=== PATIENT | female | born 1975 | race Caucasian/White ===

== ENCOUNTER 2016-11-09 12:18 | Inpatient (IN) | payer OTHER ==
[2016-11-09] VITALS (25 sets, daily range): BP systolic 91–140; BP diastolic 42–88; PULSE 60–116; RESP 10–24; Ht 180.3 cm; Wt 146.0 kg
[~2016-11-09] VITALS: Ht 180.3 cm; Wt 146.0 kg
[~2016-11-09 12:18] MED LIST: CEFAZOLIN 2 GM/50 ML (PMX) 50 ML IVPB SCH; EPHEDrine SULFATE 50 MG/5 ML SYG ONE
[2016-11-09 14:58] LABS: BASOPHILS % 0.1 % (0.0-2.0); EOSINOPHILS # 0.3 10^3/ul (0.0-0.5); EOSINOPHILS % 3.1 % (0.0-7.0); HEMATOCRIT 29.1 % (37.0-47.0); HEMOGLOBIN 8.6 g/dl (12.0-16.0); LYMPHOCYTES # 2.4 10^3/ul (0.8-2.9); LYMPHOCYTES % 24.9 % (15.0-51.0); MEAN CORPUSCULAR HEMOGLOBIN 22.9 pg (29.0-33.0); MEAN CORPUSCULAR HGB CONC 29.6 g/dl (32.0-37.0); MEAN CORPUSCULAR VOLUME 77.4 fl (82.0-101.0); MEAN PLATELET VOLUME 9.8 fl (7.4-10.4); MONOCYTE # 0.6 10^3/ul (0.3-0.9); MONOCYTES % 6.4 % (0.0-11.0); PLATELET COUNT 306 10^3/UL (140-415); RED BLOOD COUNT 3.76 10^6/ul (4.20-5.40); RED CELL DISTRIBUTION WIDTH 15.2 % (11.5-14.5); WHITE BLOOD COUNT 9.8 10^3/ul (4.8-10.8)
[2016-11-09 15:12] LABS: HOLD TRANSMISSIONS 1
[2016-11-09] MEDS ORDERED: BUPIVACAINE 0.25% (MPF) 30 ML INJ ONE (16:27)
[2016-11-09] MEDS ORDERED: OXYCODONE/ACETAMINOPHEN (5/325) TAB PO PRN ×2 (16:30)
[2016-11-09] MEDS ORDERED: DIPHENHYDRAMINE 50 MG INJ IV PRN (16:30)
[2016-11-09] MEDS ORDERED: ONDANSETRON 4 MG INJ IV PRN (16:30)
[2016-11-09] MEDS ORDERED: PROCHLORPERAZINE 10 MG INJ IV PRN (16:30)
[2016-11-09] MEDS ORDERED: FENTAnyl 50 MCG/ML VIAL IV PRN (16:30)
[2016-11-09] MEDS ORDERED: MEPERIDINE 25 MG INJ IV PRN (16:30)
[2016-11-09] MEDS ORDERED: HYDROmorphONE (0.2 MG/ML) 10ML SYG IV PRN ×3 (16:30)
[2016-11-09] MEDS ORDERED: LIDOCAINE 2% (SDV) 5 ML INJ ONE (16:47)
[2016-11-09] MEDS ORDERED: SUCCINYLCHOLINE CHLORIDE 100 MG/5 ML SYG IV ONE (16:47)
[2016-11-09] MEDS ORDERED: FENTAnyl 50 MCG/ML VIAL ONE (16:47)
[2016-11-09] MEDS ORDERED: PROPOFOL 20 ML ONE (16:47)
[2016-11-09] MEDS ORDERED: ROCURONIUM 50 MG INJ ONE (16:47)
[2016-11-09] MEDS ORDERED: MIDAZOLAM 1 MG/ML 2 ML INJ ONE (16:48)
[2016-11-09] MEDS ORDERED: CEFAZOLIN 1 GM INJ ONE (17:00)
[2016-11-09] MEDS ORDERED: DEXAMETHASONE 4 MG/ML 1 ML INJ ONE (17:11)
[2016-11-09] MEDS ORDERED: ONDANSETRON 4 MG INJ ONE (17:11)
[2016-11-09] MEDS ORDERED: NEOSTIGMINE 3 MG/3 ML SYRINGE ONE ×2 (17:17→17:34)
[2016-11-09] MEDS ORDERED: GLYCOPYRROLATE 0.4 MG INJ ONE (17:17)
[2016-11-09] MEDS ORDERED: HYDROmorphONE 2 MG/ML SYG ONE (17:25)
[2016-11-09] MEDS ORDERED: KETOROLAC 30 MG INJ ONE (17:40)
[2016-11-09] MEDS ORDERED: HYDROCODONE/APAP (5/325) TAB PO ONE (18:00)
--- NOTE | 2016-11-09 18:00 | OPR ---
Date/Time of Note Date/Time of Note DATE: 11/09/16 TIME: 17:57 Operative Report Procedure Date: Nov 09, 2016 Preoperative Diagnosis symptomatic gallstones Postoperative Diagnosis same Operation Performed 1. laparoscopic cholecystectomy 2. therapeutic injection of subcutaneous marcaine cpt code [id number] Surgeon: Brisa DE SANTIAGO Anesthesia Type: general Estimated Blood Loss: 0 - 10 ml's Specimens gallbladder Grafts/Implants: none Complications: no Indications This is a 41-year-old female with symptomatic gallstones. She requires surgical excision of her gallbladder. Risks alternatives benefits and percent were discussed with the patient. Patient expresses understanding consents to the operation. Procedure Description Patient taken to the OR and prepped and draped in usual sterile fashion. Surgical timeout was performed. IV antibiotics given. Supra umbilical midline incision was made with a 15 blade. Dissection cautery was carried down to the fascia. 0 Vicryl stay sutures were placed on either side of midline. Midline was opened. The balloon Agosto trocar was introduced pneumoperitoneum was established. Midepigastric 12 mm optical trocar was placed under direct visualization. Right upper quadrant right upper flank 5 mm optical trochars were placed under direct visualization. Upon initial inspection there is adhesions to the gallbladder. The gallbladder was retracted in the lateral and outward direction by grasping the fundus. Lateral dissection was started with cautery. The cystic duct was carefully dissected out. The thickened cystic duct was not amenable for clip nut packer. This area was divided with 35 mm echelon vascular stapler. The staple line was reinforced with clips. The cystic artery was divided with 3 clips proximal 1 clip distal. The gallbladder was taken of the gallbladder bed. Ports removed under direct visualization. 0 Vicryl stay sutures were tied down. Skin was closed using skin shannon. Therapeutic subcutaneous Marcaine was injected throughout the port sites. Dry dressings were applied. Brisa DE SANTIAGO Nov 09, 2016 18:00
[2016-11-09] MEDS ORDERED: METOCLOPRAMIDE 10 MG INJ ONE (19:26)
[2016-11-09] MEDS ORDERED: TRIMETHOBENZAMIDE 100 MG/ML VIAL IM PRN (19:30)
[2016-11-09] MEDS ORDERED: METOCLOPRAMIDE 10 MG INJ IV PRN (19:30)
[2016-11-09] MEDS ORDERED: ACETAMINOPHEN 1000MG/100ML IV 100 ML IVPB PRN (21:30)
[2016-11-09] MEDS: D5W-0.45 NACL + KCL 20 MEQ 1,000 ML IV SCH (22:25)
[2016-11-09] MEDS: ONDANSETRON 4 MG INJ IV PRN (22:25)
[2016-11-09] MEDS: SOD CHLORIDE 0.9% 1,000 ML IV SCH (23:06)
[2016-11-10] MEDS ORDERED: METOCLOPRAMIDE (1 MG/ML) IV SYG IV SCH
[2016-11-10] MEDS: SOD CHLORIDE 0.9% 1,000 ML IV SCH (00:11)
[2016-11-10] MEDS: METOCLOPRAMIDE 10 MG INJ IV SCH ×5 (00:15→23:15)
[2016-11-10 03:01] VITALS: BP 95/56; RESP 18
--- NOTE | 2016-11-10 03:01 | HP ---
DATE OF ADMISSION: 11/09/2016 CHIEF COMPLAINT AND HISTORY OF PRESENT ILLNESS: The patient is a 41-year-old obese female, with a history of symptomatic gallstones. Was seen by Dr. Rockwell as an outpatient. The patient was brought into the hospital today and underwent laparoscopic cholecystectomy. The patient in recovery room had significant pain, and therefore, could not discharged. The patient also had significant nausea and required both IV Zofran and Reglan. The patient is being admitted for further evaluation and management. The patient denied any chest pain. No reported shortness of breath. No reported leg edema. No reported headache, dizziness, syncope. No history of fever or chills. No history of focal weakness. The rest of the review of systems unremarkable. PAST MEDICAL HISTORY: As stated above. PAST SURGICAL HISTORY: Patient is status post umbilical hernia repair. SOCIAL HISTORY: No smoking. No alcohol. FAMILY HISTORY: Multiple family members have diabetes. PHYSICAL EXAMINATION: GENERAL APPEARANCE: Revealed the patient to be conscious, awake, alert. VITAL SIGNS: Temperature 98.9, pulse is 70, respirations 17, blood pressure 103/56, O2 sat 98 percent on 2 L. HEENT: Conjunctivae and lids normal. Oropharynx clear. NECK: Supple. No mass or thyromegaly. CHEST: Fairly clear. CVS: S1, S2 normal. No murmur. ABDOMEN: Soft. EXTREMITIES: No leg edema. NEUROLOGIC: Patient is awake, alert, with no gross focal deficits. DATA: WBC 9.8, hemoglobin 8.6. IMPRESSION: Symptomatic gallstone, status post surgery. PLAN: Patient will be admitted on a medical floor. Patient will be started on clear liquid diet. The patient will also be given IV Tylenol, Percocet and IV Dilaudid for pain control. We will also add Zofran and Reglan for nausea and vomiting. The patient will also be given IV Pepcid. Due to significant anemia, we will obtain followup labs tomorrow morning. Dictated By: Prem Noel MD /cely/aurelia /Document#: [id number]
[2016-11-10 04:35] VITALS: BP 122/67; PULSE 63
[2016-11-10] MEDS: HYDROmorphONE 1 MG/ML SYG IV PRN (04:39)
[2016-11-10] MEDS: ONDANSETRON 4 MG INJ IV PRN (04:39)
[2016-11-10 06:24] LABS: ABNORMAL IP MESSAGE 1; BASOPHILS % 0.1 % (0.0-2.0); HEMOGLOBIN 8.2 g/dl (12.0-16.0); LYMPHOCYTES # 1.2 10^3/ul (0.8-2.9); LYMPHOCYTES % 10.2 % (15.0-51.0); MEAN CORPUSCULAR HEMOGLOBIN 22.3 pg (29.0-33.0); MEAN CORPUSCULAR HGB CONC 28.3 g/dl (32.0-37.0); MEAN CORPUSCULAR VOLUME 78.8 fl (82.0-101.0); MONOCYTE # 0.6 10^3/ul (0.3-0.9); MONOCYTES % 4.9 % (0.0-11.0); NEUTROPHILS % 84.1 % (39.0-77.0); PLATELET COUNT 278 10^3/UL (140-415); RED BLOOD COUNT 3.68 10^6/ul (4.20-5.40); RED CELL DISTRIBUTION WIDTH 15.2 % (11.5-14.5); WHITE BLOOD COUNT 11.3 10^3/ul (4.8-10.8)
[2016-11-10 06:38] LABS: POSITIVE DIFF @See below
[2016-11-10 06:51] LABS: CALCIUM 8.2 mg/dl (8.4-10.2); CREATININE 0.65 mg/dl (0.44-1.00); POTASSIUM 4.4 mmol/L (3.5-5.1)
[2016-11-10 08:00] VITALS: BP_SYST 110; BP_SYST 122; BP_DIAS 60; BP_DIAS 80; RESP 20
[2016-11-10] MEDS: FAMOTIDINE 20 MG INJ IV SCH ×2 (08:56→20:17)
[2016-11-10] MEDS: D5W-0.45 NACL + KCL 20 MEQ 1,000 ML IV SCH ×2 (08:56→17:42)
--- NOTE | 2016-11-10 13:38 | PN ---
Date/Time of Note Date/Time of Note DATE: 11/10/16 TIME: 13:34 Assessment/Plan VTE Prophylaxis VTE Prophylaxis Intervention: ambulation Lines/Catheters IV C[facility] Type [facility]from [facility] Peripheral IV Urinary Cath still in place: No Assessment/Plan Assessment/Plan 41 years old female is status post laparoscopic cholecystectomy was done yesterday. Has been suffering from nausea and vomiting actually has vomited several times today morning and today afternoon. Bowel movement no passing gas. During that the patient has not been able to eat any food and also no bowel movement we are going to keep the patient overnight here and see how she is doing to be doing and hopefully we can discharge her tomorrow morning. Subjective 24 Hr Interval Summary Free Text/Dictation Patient has been vomiting all day and last night and is nauseous. No BM no passing flatus. Urinating but normally Pain is moderate Exam/Review of Systems Vital Signs Vitals Vital Signs Date Time Temp Pulse Resp B/P Pulse Ox O2 Delivery O2 Flow Rate FiO2 11/10/16 09:00 Nasal Cannula 2.0 11/10/16 08:00 98.8 86 20 122/60 96 Intake and Output 11/09/16 11/09/16 11/10/16 15:00 23:00 07:00 Intake Total 1200 ml 750 ml Output Total 10 ml 150 ml Balance 1190 ml 600 ml Exam Stop day #1 status post laparoscopic cholecystectomy. Sign is a stable slightly 98.8. Elevated 11,300 with 84% segmented. Study within normal limits. Abdomen is soft. Tenderness in right lower quadrant on deep pressure. Results Result Diagram: 11/10/16 0529 11/10/16 0529 Results 24 hrs Laboratory Tests Test 11/09/16 14:15 11/10/16 05:29 White Blood Count 9.8 11.3 H Red Blood Count 3.76 L 3.68 L Hemoglobin 8.6 L 8.2 L Hematocrit 29.1 L 29.0 L Mean Corpuscular Volume 77.4 L 78.8 L Mean Corpuscular Hemoglobin 22.9 L 22.3 L Mean Corpuscular Hemoglobin Concent 29.6 L 28.3 L Red Cell Distribution Width 15.2 H 15.2 H Platelet Count 306 278 Mean Platelet Volume 9.8 10.0 Neutrophils % 65.0 84.1 H Lymphocytes % 24.9 10.2 L Monocytes % 6.4 4.9 Eosinophils % 3.1 0.0 Basophils % 0.1 0.1 Nucleated Red Blood Cells % 0.0 0.0 Neutrophils # (Manual) 6.3 9.5 H Lymphocytes # 2.4 1.2 Monocytes # 0.6 0.6 Eosinophils # 0.3 0.0 Basophils # 0.0 0.0 Nucleated Red Blood Cells # 0.0 0.0 CBC Results Faxed/Phoned 1 *H Sodium Level 140 Potassium Level 4.4 Chloride Level 106 Carbon Dioxide Level 27 Anion Gap 11 Blood Urea Nitrogen 10 Creatinine 0.65 Glucose Level 145 Calcium Level 8.2 L Medications Medications Current Medications Potassium Chloride/Dextrose/ Sod Cl 1,000 ml @ 100 mls/hr Q10H IV Last administered on 11/10/16 08:56; Admin Dose 100 MLS/HR; Start 11/09/16 at 21:30 Acetaminophen (Ofirmev 1000mg/ 100ml Iv) 100 ml @ 400 mls/hr Q6H PRN IVPB PAIN ; Start 11/09/16 at 21:30 Oxycodone/ Acetaminophen (Percocet (5/ 325)) 1 tab Q4H PRN PO PAIN; Start at 21:30 Hydromorphone HCl (Dilaudid) 1 mg Q4H PRN IV PAIN Last administered on 04:39; Admin Dose 1 MG; Start 11/09/16 at 21:30 Ondansetron HCl (Zofran Inj) 4 mg Q4H PRN IV NAUSEA AND/OR VOMITING Last administered on 11/10/16 04:39; Admin Dose 4 MG; Start 11/09/16 at 21:30 Famotidine (Pepcid Iv) 20 mg BID IV Last administered on 11/10/16 08:56; Admin Dose 20 MG; Start 11/10/16 at 09:00 Metoclopramide HCl (Reglan) 10 mg Q6 IV Last administered on 11/10/16 11:13; Admin Dose 10 MG; Start 11/10/16 at 00:00 AVERY PRITCHARD MD Nov 10, 2016 13:38
[2016-11-10] MEDS: OXYCODONE/ACETAMINOPHEN (5/325) TAB PO PRN (18:39)
[2016-11-10] MEDS ORDERED: BISACODYL 10 MG SUPP PR PRN (20:00)
--- NOTE | 2016-11-10 20:01 | PN ---
Date/Time of Note Date/Time of Note DATE: 11/10/16 TIME: 19:59 Assessment/Plan VTE Prophylaxis VTE Prophylaxis Intervention: other Lines/Catheters IV Catheter Type (from Nrs): Peripheral IV Urinary Cath still in place: No Assessment/Plan Assessment/Plan -Symptomatic gallstone - status post surgery. - per surgery - IVF - IS Dw Dr Steinberg/staff Subjective 24 Hr Interval Summary Constitutional: requiring IVF Respiratory: no complaints Cardiovascular: no complaints Gastrointestinal: nausea, pain Genitourinary: no complaints Musculoskeletal: no complaints Skin: other Exam/Review of Systems Vital Signs Vitals Vital Signs Date Time Temp Pulse Resp B/P Pulse Ox O2 Delivery O2 Flow Rate FiO2 11/10/16 09:00 Nasal Cannula 2.0 11/10/16 08:00 97.8 64 20 110/80 96 Intake and Output 11/09/16 11/09/16 11/10/16 15:00 23:00 07:00 Intake Total 1200 ml 750 ml Output Total 10 ml 150 ml Balance 1190 ml 600 ml Exam Constitutional: alert, well developed Respiratory: clear to auscultation, normal air movement Cardiovascular: nl pulses, regular rate and rhythm Gastrointestinal: other (surgical abdomen), soft Musculoskeletal: nl extremities to inspection Extremities: normal pulses Neurological: nl mental status, nl speech Results Result Diagram: 11/10/1629 11/10/16 0529 Results 24 hrs Laboratory Tests Test 11/10/16 05:29 White Blood Count 11.3 H Red Blood Count 3.68 L Hemoglobin 8.2 L Hematocrit 29.0 L Mean Corpuscular Volume 78.8 L Mean Corpuscular Hemoglobin 22.3 L Mean Corpuscular Hemoglobin Concent 28.3 L Red Cell Distribution Width 15.2 H Platelet Count 278 Mean Platelet Volume 10.0 Neutrophils % 84.1 H Lymphocytes % 10.2 L Monocytes % 4.9 Eosinophils % 0.0 Basophils % 0.1 Nucleated Red Blood Cells % 0.0 Neutrophils # (Manual) 9.5 H Lymphocytes # 1.2 Monocytes # 0.6 Eosinophils # 0.0 Basophils # 0.0 Nucleated Red Blood Cells # 0.0 Sodium Level 140 Potassium Level 4.4 Chloride Level 106 Carbon Dioxide Level 27 Anion Gap 11 Blood Urea Nitrogen 10 Creatinine 0.65 Glucose Level 145 Calcium Level 8.2 L Medications Medications Current Medications Potassium Chloride/Dextrose/ Sod Cl 1,000 ml @ 100 mls/hr Q10H IV Last administered on 11/10/16 17:42; Admin Dose 100 MLS/HR; Start 11/09/16 at 21:30 Acetaminophen (Ofirmev 1000mg/ 100ml Iv) 100 ml @ 400 mls/hr Q6H PRN IVPB PAIN ; Start 11/09/16 at 21:30 Oxycodone/ Acetaminophen (Percocet (5/ 325)) 1 tab Q4H PRN PO PAIN Last administered on 11/10/16 18:39; Admin Dose 1 TAB; Start 11/09/16 at 21:30 Hydromorphone HCl (Dilaudid) 1 mg Q4H PRN IV PAIN Last administered on 04:39; Admin Dose 1 MG; Start 11/09/16 at 21:30 Ondansetron HCl (Zofran Inj) 4 mg Q4H PRN IV NAUSEA AND/OR VOMITING Last administered on 11/10/16 04:39; Admin Dose 4 MG; Start 11/09/16 at 21:30 Famotidine (Pepcid Iv) 20 mg BID IV Last administered on 11/10/16 08:56; Admin Dose 20 MG; Start 11/10/16 at 09:00 Metoclopramide HCl (Reglan) 10 mg Q6 IV Last administered on 11/10/16 17:41; Admin Dose 10 MG; Start 11/10/16 at 00:00 Bisacodyl (Dulcolax Supp) 10 mg DAILY PRN [place] CONSTIPATION; Start 11/10/16 at 20: 00 HEATHER WOODS Nov 10, 2016 20:01
[2016-11-10 20:45] VITALS: BP 110/53; RESP 18
[2016-11-11] VITALS (7 sets, daily range): BP systolic 107–142; BP diastolic 54–72; PULSE 59–72; RESP 16–21
[2016-11-11] MEDS: D5W-0.45 NACL + KCL 20 MEQ 1,000 ML IV SCH ×3 (03:07→23:55)
[2016-11-11] MEDS: METOCLOPRAMIDE 10 MG INJ IV SCH ×4 (05:45→23:55)
[2016-11-11] MEDS: OXYCODONE/ACETAMINOPHEN (5/325) TAB PO PRN (05:45)
[2016-11-11 05:58] LABS: ABNORMAL IP MESSAGE 1; BASOPHILS % 0.1 % (0.0-2.0); EOSINOPHILS # 0.2 10^3/ul (0.0-0.5); EOSINOPHILS % 1.9 % (0.0-7.0); HEMATOCRIT 25.4 % (37.0-47.0); HEMOGLOBIN 7.1 g/dl (12.0-16.0); LYMPHOCYTES # 2.4 10^3/ul (0.8-2.9); MEAN CORPUSCULAR HEMOGLOBIN 22.6 pg (29.0-33.0); MEAN CORPUSCULAR VOLUME 80.9 fl (82.0-101.0); MEAN PLATELET VOLUME 10.1 fl (7.4-10.4); MONOCYTE # 0.7 10^3/ul (0.3-0.9); MONOCYTES % 7.9 % (0.0-11.0); NEUTROPHILS % 63.6 % (39.0-77.0); PLATELET COUNT 237 10^3/UL (140-415); RED BLOOD COUNT 3.14 10^6/ul (4.20-5.40); RED CELL DISTRIBUTION WIDTH 15.4 % (11.5-14.5); WHITE BLOOD COUNT 9.1 10^3/ul (4.8-10.8)
[2016-11-11 06:26] LABS: POSITIVE DIFF @See below
[2016-11-11 06:28] LABS: CREATININE 0.69 mg/dl (0.44-1.00)
[2016-11-11] MEDS: FAMOTIDINE 20 MG INJ IV SCH ×2 (08:00→20:52)
--- NOTE | 2016-11-11 13:34 | PN ---
Date/Time of Note Date/Time of Note DATE: 11/11/16 TIME: 13:30 Assessment/Plan VTE Prophylaxis VTE Prophylaxis Intervention: SCD's Lines/Catheters IV Catheter Type (from Nrs): Peripheral IV Urinary Cath still in place: No Assessment/Plan Assessment/Plan -Symptomatic gallstone - Anemia -prbc 1 UNIT today - status post surgery. - per surgery - IVF - IS Dw Dr Steinberg/staff Subjective 24 Hr Interval Summary Respiratory: no complaints Cardiovascular: no complaints Gastrointestinal: nausea, pain Musculoskeletal: no complaints Neurologic: no complaints Exam/Review of Systems Vital Signs Vitals Vital Signs Date Time Temp Pulse Resp B/P Pulse Ox O2 Delivery O2 Flow Rate FiO2 11/11/16 07:50 98.6 76 20 108/54 97 11/10/16 09:00 Nasal Cannula 2.0 Intake and Output 11/10/16 11/10/16 11/11/16 15:00 23:00 07:00 Intake Total 300 ml 1980 ml 1600 ml Balance 300 ml 1980 ml 1600 ml Exam Constitutional: alert, obese, oriented, well developed Gastrointestinal: soft Musculoskeletal: nl extremities to inspection Extremities: normal pulses Neurological: nl mental status, nl speech Results Result Diagram: 11/11/1652611/11/16526 Results 24 hrs Laboratory Tests Test 11/11/16 05:27 11/11/16 06:27 White Blood Count 9.1 Red Blood Count 3.14 L Hemoglobin 7.1 L Hematocrit 25.4 L Mean Corpuscular Volume 80.9 L Mean Corpuscular Hemoglobin 22.6 L Mean Corpuscular Hemoglobin Concent 28.0 L Red Cell Distribution Width 15.4 H Platelet Count 237 Mean Platelet Volume 10.1 Neutrophils % 63.6 Lymphocytes % 26.0 Monocytes % 7.9 Eosinophils % 1.9 Basophils % 0.1 Nucleated Red Blood Cells % 0.0 Neutrophils # (Manual) 5.8 Lymphocytes # 2.4 Monocytes # 0.7 Eosinophils # 0.2 Basophils # 0.0 Nucleated Red Blood Cells # 0.0 Sodium Level 140 Potassium Level 4.0 Chloride Level 107 Carbon Dioxide Level 28 Anion Gap 9 Blood Urea Nitrogen 8 Creatinine 0.69 Glucose Level 100 # Calcium Level 8.0 L Lab Scanned Report LAB Medications Medications Current Medications Potassium Chloride/Dextrose/ Sod Cl 1,000 ml @ 60 mls/hr [id number] IV Last administered on 11/11/16 03:07; Admin Dose 100 MLS/HR; Start 11/09/16 at 21:30 Acetaminophen (Ofirmev 1000mg/ 100ml Iv) 100 ml @ 400 mls/hr Q6H PRN IVPB PAIN ; Start 11/09/16 at 21:30 Oxycodone/ Acetaminophen (Percocet (5/ 325)) 1 tab Q4H PRN PO PAIN Last administered on 11/11/16 05:45; Admin Dose 1 TAB; Start 11/09/16 at 21:30 Hydromorphone HCl (Dilaudid) 1 mg Q4H PRN IV PAIN Last administered on 04:39; Admin Dose 1 MG; Start 11/09/16 at 21:30 Ondansetron HCl (Zofran Inj) 4 mg Q4H PRN IV NAUSEA AND/OR VOMITING Last administered on 11/10/16 04:39; Admin Dose 4 MG; Start 11/09/16 at 21:30 Famotidine (Pepcid Iv) 20 mg BID IV Last administered on 11/11/16 08:00; Admin Dose 20 MG; Start 11/10/16 at 09:00 Metoclopramide HCl (Reglan) 10 mg Q6 IV Last administered on 11/11/16 05:45; Admin Dose 10 MG; Start 11/10/16 at 00:00 Bisacodyl (Dulcolax Supp) 10 mg DAILY PRN [place] CONSTIPATION; Start 11/10/16 at 20: 00 HEATHER WOODS Nov 11, 2016 13:33
--- NOTE | 2016-11-11 16:43 | PN ---
DATE: 11/11/2016 SUBJECTIVE DATA: The patient is status post laparoscopic cholecystectomy postop day number 2. She states that she feels better today. She had walked around a little bit. No bowel movement, no passing gas but tolerating liquid diet. OBJECTIVE: VITAL SIGNS: Temperature 98.6, heart rate 76 and regular, respirations 20, blood pressure 108/54, saturation 97 percent room air. ABDOMEN: Soft, no tenderness, no guarding LABS: WBC 9100 with 63 percent segmented, hemoglobin 7.1, hematocrit 25.4 (on admission hemoglobin was 8.6, hematocrit 29.1). She states that she has been having vaginal bleeding irregularly and they have found a fibroma and are planning to do some procedure for her. Chemistry; sodium, potassium, BUN, creatinine within normal limits. ASSESSMENT AND PLAN: A 41-year-old female, obese with BMI 44.9 who had laparoscopy cholecystectomy 2 days ago. Yesterday she was very nauseous and was vomiting, today much better. Has tolerated liquid diet. Vital signs are stable. From a surgical point of view she can be discharged home if it is okay with the medical service. It should be mentioned that the patient should be followed up by Dr. Rockwell in his office next week. Dictated By: Sumit Lopez MD /cely/candace /Document#: [id number] MARIAH
[2016-11-12 02:23] VITALS: BP 115/56; RESP 18
[2016-11-12] MEDS: OXYCODONE/ACETAMINOPHEN (5/325) TAB PO PRN (02:40)
[2016-11-12] MEDS: METOCLOPRAMIDE 10 MG INJ IV SCH ×4 (05:24→23:51)
[2016-11-12 05:45] LABS: BASOPHILS % 0.1 % (0.0-2.0); EOSINOPHILS # 0.3 10^3/ul (0.0-0.5); EOSINOPHILS % 3.8 % (0.0-7.0); HEMOGLOBIN 8.2 g/dl (12.0-16.0); LYMPHOCYTES # 2.3 10^3/ul (0.8-2.9); MEAN CORPUSCULAR HEMOGLOBIN 23.4 pg (29.0-33.0); MEAN CORPUSCULAR HGB CONC 29.3 g/dl (32.0-37.0); MEAN PLATELET VOLUME 9.8 fl (7.4-10.4); MONOCYTE # 0.7 10^3/ul (0.3-0.9); MONOCYTES % 8.2 % (0.0-11.0); NEUTROPHILS % 61.5 % (39.0-77.0); NUCLEATED RED BLOOD CELLS% 0.2 /100WBC (0.0-0.0); PLATELET COUNT 268 10^3/UL (140-415); RED CELL DISTRIBUTION WIDTH 15.3 % (11.5-14.5); WHITE BLOOD COUNT 8.9 10^3/ul (4.8-10.8)
[2016-11-12] MEDS: HYDROmorphONE 1 MG/ML SYG IV PRN ×4 (05:45→21:21)
[2016-11-12 06:15] LABS: CALCIUM 8.4 mg/dl (8.4-10.2); CREATININE 0.74 mg/dl (0.44-1.00); POTASSIUM 4.2 mmol/L (3.5-5.1)
[2016-11-12 08:00] VITALS: BP 115/63; RESP 20
[2016-11-12] MEDS: ONDANSETRON 4 MG INJ IV PRN (08:18)
[2016-11-12] MEDS: FAMOTIDINE 20 MG INJ IV SCH ×2 (08:18→21:22)
--- NOTE | 2016-11-12 13:46 | PN ---
Date/Time of Note Date/Time of Note DATE: 11/12/16 TIME: 13:45 Assessment/Plan VTE Prophylaxis VTE Prophylaxis Intervention: SCD's Lines/Catheters IV Catheter Type (from Nrs): Peripheral IV Urinary Cath still in place: No Assessment/Plan Chief Complaint/Hosp Course s/p lap brenda with nausea and vomiting Problems: Assessment/Plan if doesn't improve by tomorrow will get mrcp to evaluate Subjective 24 Hr Interval Summary Free Text/Dictation some nausea and vomiting Exam/Review of Systems Vital Signs Vitals Vital Signs Date Time Temp Pulse Resp B/P Pulse Ox O2 Delivery O2 Flow Rate FiO2 11/12/16 08:00 98.0 70 20 115/63 92 11/10/16 09:00 Nasal Cannula 2.0 Intake and Output 11/11/16 11/11/16 11/12/16 15:00 23:00 07:00 Intake Total 2250 ml 1120 ml Balance 2250 ml 1120 ml Exam c/d/i Results Result Diagram: 11/12/16 0509 11/12/16 0509 Results 24 hrs Laboratory Tests Test 11/12/16 05:09 11/12/16 05:16 White Blood Count 8.9 Red Blood Count 3.50 L Hemoglobin 8.2 L Hematocrit 28.0 L Mean Corpuscular Volume 80.0 L Mean Corpuscular Hemoglobin 23.4 L Mean Corpuscular Hemoglobin Concent 29.3 L Red Cell Distribution Width 15.3 H Platelet Count 268 Mean Platelet Volume 9.8 Neutrophils % 61.5 Lymphocytes % 26.0 Monocytes % 8.2 Eosinophils % 3.8 Basophils % 0.1 Nucleated Red Blood Cells % 0.2 H Neutrophils # (Manual) 5.5 Lymphocytes # 2.3 Monocytes # 0.7 Eosinophils # 0.3 Basophils # 0.0 Nucleated Red Blood Cells # 0.0 Sodium Level 138 Potassium Level 4.2 Chloride Level 103 Carbon Dioxide Level 30 Anion Gap 9 Blood Urea Nitrogen 9 Creatinine 0.74 Glucose Level 97 Calcium Level 8.4 Lab Scanned Report BLOOD TRANSFUSION Medications Medications Current Medications Potassium Chloride/Dextrose/ Sod Cl 1,000 ml @ 60 mls/hr [id number] IV Last administered on 11/11/16t 23:55; Admin Dose 60 MLS/HR; Start 11/09/16 at 21:30 Acetaminophen (Ofirmev 1000mg/ 100ml Iv) 100 ml @ 400 mls/hr Q6H PRN IVPB PAIN ; Start 11/09/16 at 21:30 Oxycodone/ Acetaminophen (Percocet (5/ 325)) 1 tab Q4H PRN PO PAIN Last administered on 11/12/16 02:40; Admin Dose 1 TAB; Start 11/09/16 at 21:30 Hydromorphone HCl (Dilaudid) 1 mg Q4H PRN IV PAIN Last administered on 11:07; Admin Dose 1 MG; Start 11/09/16 at 21:30 Ondansetron HCl (Zofran Inj) 4 mg Q4H PRN IV NAUSEA AND/OR VOMITING Last administered on 11/12/16 08:18; Admin Dose 4 MG; Start 11/09/16 at 21:30 Famotidine (Pepcid Iv) 20 mg BID IV Last administered on 11/12/16 08:18; Admin Dose 20 MG; Start 11/10/16 at 09:00 Metoclopramide HCl (Reglan) 10 mg Q6 IV Last administered on 11/12/16 12:26; Admin Dose 10 MG; Start 11/10/16 at 00:00 Bisacodyl (Dulcolax Supp) 10 mg DAILY PRN [place] CONSTIPATION; Start 11/10/16 at 20: 00 Brisa DE SANTIAGO Nov 12, 2016 13:46
[2016-11-12 14:00] VITALS: BP 130/63; RESP 19
[2016-11-12 15:05] LABS: ALBUMIN 3.6 g/dl (3.3-4.9); ALBUMIN/GLOBULIN RATIO 1.16; BILIRUBIN,INDIRECT 0.2 mg/dl (0-1.1); BILIRUBIN,TOTAL 0.2 mg/dl (0.2-1.3); CALCIUM 8.6 mg/dl (8.4-10.2); CREATININE 0.65 mg/dl (0.44-1.00); POTASSIUM 4.4 mmol/L (3.5-5.1); TOTAL PROTEIN 6.7 g/dl (6.1-8.1)
[2016-11-12] MEDS: D5W-0.45 NACL + KCL 20 MEQ 1,000 ML IV SCH (16:36)
--- NOTE | 2016-11-12 18:20 | PN ---
Date/Time of Note Date/Time of Note DATE: 11/12/16 TIME: 18:15 Assessment/Plan VTE Prophylaxis VTE Prophylaxis Intervention: SCD's Lines/Catheters IV Catheter Type (from Nrs): Peripheral IV Urinary Cath still in place: No Assessment/Plan Assessment/Plan -Symptomatic gallstone - Anemia -SP I Unit PRBC - vAGINAL Bleeding- reported - will get OBGYN to evaluate her - stat H/H - AM CBC - cont to monitor - status post surgery. - per surgery - IVF - IS Dw Dr Steinberg/staff Subjective 24 Hr Interval Summary Respiratory: no complaints Cardiovascular: no complaints Gastrointestinal: no complaints Genitourinary: bleeding (vaginal bleeding sec to Fibroids) Skin: no complaints Neurologic: no complaints Exam/Review of Systems Vital Signs Vitals Vital Signs Date Time Temp Pulse Resp B/P Pulse Ox O2 Delivery O2 Flow Rate FiO2 11/12/16 08:00 98.0 70 20 115/63 92 11/10/16 09:00 Nasal Cannula 2.0 Intake and Output 11/11/16 11/11/16 11/12/16 15:00 23:00 07:00 Intake Total 2250 ml 1120 ml Balance 2250 ml 1120 ml Exam Constitutional: alert, oriented, well developed Respiratory: clear to auscultation, normal air movement Cardiovascular: nl pulses, regular rate and rhythm Musculoskeletal: nl extremities to inspection Extremities: normal pulses Neurological: nl mental status, nl speech Results Result Diagram: 11/12/16 0509 11/12/16 0509 Results 24 hrs Laboratory Tests Test 11/12/16 04:20 11/12/16 05:09 11/12/16 05:16 Sodium Level 135 138 Potassium Level 4.4 4.2 Chloride Level 100 103 Carbon Dioxide Level 30 30 Anion Gap 9 9 Blood Urea Nitrogen 7 9 Creatinine 0.65 0.74 Glucose Level 110 97 Calcium Level 8.6 8.4 Total Bilirubin 0.2 Direct Bilirubin 0.00 Indirect Bilirubin 0.2 Aspartate Amino Transf (AST/SGOT) 29 Alanine Aminotransferase (ALT/SGPT) 36 Alkaline Phosphatase 95 Total Protein 6.7 Albumin 3.6 Globulin 3.10 Albumin/Globulin Ratio 1.16 White Blood Count 8.9 Red Blood Count 3.50 L Hemoglobin 8.2 L Hematocrit 28.0 L Mean Corpuscular Volume 80.0 L Mean Corpuscular Hemoglobin 23.4 L Mean Corpuscular Hemoglobin Concent 29.3 L Red Cell Distribution Width 15.3 H Platelet Count 268 Mean Platelet Volume 9.8 Neutrophils % 61.5 Lymphocytes % 26.0 Monocytes % 8.2 Eosinophils % 3.8 Basophils % 0.1 Nucleated Red Blood Cells % 0.2 H Neutrophils # (Manual) 5.5 Lymphocytes # 2.3 Monocytes # 0.7 Eosinophils # 0.3 Basophils # 0.0 Nucleated Red Blood Cells # 0.0 Lab Scanned Report BLOOD TRANSFUSION Medications Medications Current Medications Potassium Chloride/Dextrose/ Sod Cl 1,000 ml @ 60 mls/hr [id number] IV Last administered on 11/12/16 16:36; Admin Dose 60 MLS/HR; Start 11/09/16 at 21:30 Acetaminophen (Ofirmev 1000mg/ 100ml Iv) 100 ml @ 400 mls/hr Q6H PRN IVPB PAIN ; Start 11/09/16 at 21:30 Oxycodone/ Acetaminophen (Percocet (5/ 325)) 1 tab Q4H PRN PO PAIN Last administered on 11/12/16 02:40; Admin Dose 1 TAB; Start 11/09/16 at 21:30 Hydromorphone HCl (Dilaudid) 1 mg Q4H PRN IV PAIN Last administered on 16:36; Admin Dose 1 MG; Start 11/09/16 at 21:30 Ondansetron HCl (Zofran Inj) 4 mg Q4H PRN IV NAUSEA AND/OR VOMITING Last administered on 11/12/16 08:18; Admin Dose 4 MG; Start 11/09/16 at 21:30 Famotidine (Pepcid Iv) 20 mg BID IV Last administered on 11/12/16 08:18; Admin Dose 20 MG; Start 11/10/16 at 09:00 Metoclopramide HCl (Reglan) 10 mg Q6 IV Last administered on 11/12/16 18:04; Admin Dose 10 MG; Start 11/10/16 at 00:00 Bisacodyl (Dulcolax Supp) 10 mg DAILY PRN [place] CONSTIPATION; Start 11/10/16 at 20: 00 HEATHER WOODS Nov 12, 2016 18:20
[2016-11-12 20:24] LABS: BASOPHILS % 0.3 % (0.0-2.0); EOSINOPHILS # 0.2 10^3/ul (0.0-0.5); EOSINOPHILS % 1.8 % (0.0-7.0); HEMATOCRIT 29.6 % (37.0-47.0); HEMOGLOBIN 8.7 g/dl (12.0-16.0); LYMPHOCYTES # 1.6 10^3/ul (0.8-2.9); LYMPHOCYTES % 15.3 % (15.0-51.0); MEAN CORPUSCULAR HEMOGLOBIN 23.3 pg (29.0-33.0); MEAN CORPUSCULAR HGB CONC 29.4 g/dl (32.0-37.0); MEAN CORPUSCULAR VOLUME 79.1 fl (82.0-101.0); MEAN PLATELET VOLUME 10.2 fl (7.4-10.4); MONOCYTE # 0.8 10^3/ul (0.3-0.9); MONOCYTES % 7.5 % (0.0-11.0); NEUTROPHILS % 74.6 % (39.0-77.0); NUCLEATED RED BLOOD CELLS% 0.2 /100WBC (0.0-0.0); PLATELET COUNT 262 10^3/UL (140-415); RED BLOOD COUNT 3.74 10^6/ul (4.20-5.40); WHITE BLOOD COUNT 10.5 10^3/ul (4.8-10.8)
[2016-11-12 20:37] VITALS: BP 101/50; RESP 18
[2016-11-12 21:00] VITALS: BP 104/57
--- NOTE | 2016-11-12 21:49 | RADRPT ---
PROCEDURE: US Pelvis. CLINICAL INDICATION: Vaginal bleeding TECHNIQUE: Multiple sonographic images of the pelvis were obtained utilizing a transabdominal and endovaginal technique. The images were reviewed on a PACS workstation. COMPARISON: None available FINDINGS: Uterus: Heterogeneous echotexture without evidence of mass lesions. Normal contour and size Size i s estimated at 9.4 x 6.5 cm. Cervix: No abnormalities of significance are seen. Endometrium: Increased in thickness; 17.5 mm. Possibilities include endometrial polyps and submucos al leiomyoma Right ovary / adnexa: Normal in size estimated at 2.8 x 2.6 x 1.7 cm. No evidence for masses, norm al blood flow on Doppler interrogation. Incidental follicles are present. Free fluid is present. Left ovary/adnexa: Normal in size estimated at 2 x 3.3 x 2 cm. No evidence for solid masses, normal blood flow on Doppler interrogation. Simple ovarian cyst measures 3 x 3 x 1.6 cm Cul-de-sac: Small amount of free fluid. RPTAT:HJJR IMPRESSION: 1. Endometrial thickening of 17.5 mm suggests endometrial polyps or possibly submucosal leiomyoma. 2. Left ovarian cyst of 3 cm with normal blood flow in the left ovary. 3. Right ovarian follicles with free fluid in the right adnexa and cul-de-sac. Physician Steve Date Time Electronically viewed and signed by Physician Steve on 11/12/2016 21:49 JR/
[2016-11-13 03:08] VITALS: BP 105/49; RESP 18
[2016-11-13] MEDS: D5W-0.45 NACL + KCL 20 MEQ 1,000 ML IV SCH ×3 (03:16→19:56)
[2016-11-13 03:30] VITALS: BP 101/55
[2016-11-13] MEDS: OXYCODONE/ACETAMINOPHEN (5/325) TAB PO PRN ×3 (04:07→17:43)
[2016-11-13] MEDS: METOCLOPRAMIDE 10 MG INJ IV SCH ×4 (05:58→23:28)
[2016-11-13 06:00] LABS: BASOPHILS % 0.2 % (0.0-2.0); EOSINOPHILS # 0.3 10^3/ul (0.0-0.5); EOSINOPHILS % 3.8 % (0.0-7.0); HEMATOCRIT 29.2 % (37.0-47.0); HEMOGLOBIN 8.7 g/dl (12.0-16.0); LYMPHOCYTES # 1.8 10^3/ul (0.8-2.9); LYMPHOCYTES % 20.7 % (15.0-51.0); MEAN CORPUSCULAR HEMOGLOBIN 23.7 pg (29.0-33.0); MEAN CORPUSCULAR HGB CONC 29.8 g/dl (32.0-37.0); MEAN CORPUSCULAR VOLUME 79.6 fl (82.0-101.0); MEAN PLATELET VOLUME 9.9 fl (7.4-10.4); MONOCYTE # 0.7 10^3/ul (0.3-0.9); MONOCYTES % 7.5 % (0.0-11.0); NEUTROPHILS % 67.5 % (39.0-77.0); NUCLEATED RED BLOOD CELLS% 0.2 /100WBC (0.0-0.0); PLATELET COUNT 286 10^3/UL (140-415); RED BLOOD COUNT 3.67 10^6/ul (4.20-5.40); WHITE BLOOD COUNT 8.6 10^3/ul (4.8-10.8)
[2016-11-13 06:26] LABS: CALCIUM 8.7 mg/dl (8.4-10.2); CREATININE 0.71 mg/dl (0.44-1.00); POTASSIUM 3.9 mmol/L (3.5-5.1)
[2016-11-13 08:02] VITALS: BP 96/48; RESP 18
[2016-11-13 08:54] VITALS: BP 134/74; PULSE 73
[2016-11-13] MEDS: FAMOTIDINE 20 MG INJ IV SCH (08:55)
--- NOTE | 2016-11-13 10:44 | PN ---
Date/Time of Note Date/Time of Note DATE: 11/13/16 TIME: 10:41 Assessment/Plan Lines/Catheters IV Catheter Type (from Nrs): Peripheral IV Urinary Cath still in place: No Assessment/Plan Assessment/Plan -Symptomatic gallstone - Anemia -SP I Unit PRBC - vAGINAL Bleeding- reported - per OBGYN -dR Yoo was notified. - stat H/H - AM CBC - cont to monitor - status post surgery. - per surgery - IVF - IS Dw Dr Steinberg/staff Subjective 24 Hr Interval Summary Respiratory: no complaints Cardiovascular: no complaints Gastrointestinal: no complaints Genitourinary: bleeding Musculoskeletal: no complaints Skin: no complaints Neurologic: no complaints Endocrine: no complaints Exam/Review of Systems Vital Signs Vitals Vital Signs Date Time Temp Pulse Resp B/P Pulse Ox O2 Delivery O2 Flow Rate FiO2 11/13/16 08:54 73 134/74 11/13/16 08:02 98.1 18 96 11/10/16 09:00 Nasal Cannula 2.0 Intake and Output 11/12/16 11/12/16 11/13/16 15:00 23:00 07:00 Intake Total 920 ml 1070 ml Balance 920 ml 1070 ml Exam Constitutional: alert, oriented, well developed Respiratory: clear to auscultation, normal air movement Cardiovascular: nl pulses, regular rate and rhythm Gastrointestinal: non-tender, soft Genitourinary - Female: other Musculoskeletal: nl extremities to inspection Extremities: normal pulses Neurological: nl mental status Results Result Diagram: 11/13/1614 11/13/1614 Results 24 hrs Laboratory Tests Test 11/12/16 19:48 11/13/16 05:14 White Blood Count 10.5 8.6 Red Blood Count 3.74 L 3.67 L Hemoglobin 8.7 L 8.7 L Hematocrit 29.6 L 29.2 L Mean Corpuscular Volume 79.1 L 79.6 L Mean Corpuscular Hemoglobin 23.3 L 23.7 L Mean Corpuscular Hemoglobin Concent 29.4 L 29.8 L Red Cell Distribution Width 15.0 H 15.0 H Platelet Count 262 286 Mean Platelet Volume 10.2 9.9 Neutrophils % 74.6 67.5 Lymphocytes % 15.3 20.7 Monocytes % 7.5 7.5 Eosinophils % 1.8 3.8 Basophils % 0.3 0.2 Nucleated Red Blood Cells % 0.2 H 0.2 H Neutrophils # (Manual) 7.9 H 5.8 Lymphocytes # 1.6 1.8 Monocytes # 0.8 0.7 Eosinophils # 0.2 0.3 Basophils # 0.0 0.0 Nucleated Red Blood Cells # 0.0 0.0 Sodium Level 137 Potassium Level 3.9 Chloride Level 101 Carbon Dioxide Level 32 H Anion Gap 8 Blood Urea Nitrogen 6 L Creatinine 0.71 Glucose Level 103 Calcium Level 8.7 Medications Medications Current Medications Potassium Chloride/Dextrose/ Sod Cl 1,000 ml @ 60 mls/hr [id number] IV Last administered on 11/12/16 16:36; Admin Dose 60 MLS/HR; Start 11/09/16 at 21:30 Acetaminophen (Ofirmev 1000mg/ 100ml Iv) 100 ml @ 400 mls/hr Q6H PRN IVPB PAIN ; Start 11/09/16 at 21:30 Oxycodone/ Acetaminophen (Percocet (5/ 325)) 1 tab Q4H PRN PO PAIN Last administered on 11/13/16 08:55; Admin Dose 1 TAB; Start 11/09/16 at 21:30 Hydromorphone HCl (Dilaudid) 1 mg Q4H PRN IV PAIN Last administered on 21:21; Admin Dose 1 MG; Start 11/09/16 at 21:30 Ondansetron HCl (Zofran Inj) 4 mg Q4H PRN IV NAUSEA AND/OR VOMITING Last administered on 11/12/16 08:18; Admin Dose 4 MG; Start 11/09/16 at 21:30 Famotidine (Pepcid Iv) 20 mg BID IV Last administered on 11/13/16 08:55; Admin Dose 20 MG; Start 11/10/16 at 09:00 Metoclopramide HCl (Reglan) 10 mg Q6 IV Last administered on 11/13/16 05:58; Admin Dose 10 MG; Start 11/10/16 at 00:00 Bisacodyl (Dulcolax Supp) 10 mg DAILY PRN [place] CONSTIPATION; Start 11/10/16 at 20: 00 HEATHER WOODS Nov 13, 2016 10:44
--- NOTE | 2016-11-13 14:23 | CONS ---
DATE OF ADMISSION: 11/09/2016 DATE OF CONSULTATION: 11/13/2016 Thank you very much, Dr. Justyn Rockwell, for allowing me to participate in the care of your patient. HISTORY OF PRESENT ILLNESS: As you know, she is a pleasant 41- year-old 3, para 3-0-0-3, who was admitted for cholecystectomy. She had uneventful surgery. She is also complaining of heavy vaginal bleeding the last few months. She states her menses are regular with interval of 30 and duration of one week, however, she has heavy periods with clots passing for 2- 3 days. She states only last month she got her period with one week interval. She states she was seen by Dr. Smalls and recommended to have transvaginal ultrasound. Transvaginal ultrasound which performed in hospital today revealed heterogeneous uterus without evidence of mass lesion with size of 9.4 x 6.5 cm. There is no abnormal region in the cervix. Endometrial thickness is 17.5 mm. There is a possibility of endometrial polyp or leiomyoma. Right ovary measures 2.8 x 2.6 x 1.7 cm. Left ovary measures 2 x 3.3 x 2 cm. There is a single ovarian cyst at left ovary measuring 3 x 3 x 1.6 cm with normal blood flow. PAST MEDICAL HISTORY: Cholelithiasis. PAST SURGICAL HISTORY: Cholecystectomy. SOCIAL HISTORY: She is . She denies tobacco, alcohol or drug use. FAMILY HISTORY: Negative. She denies breast, uterine, ovarian, or colon cancer in her family. ALLERGIES: NO KNOWN DRUG ALLERGIES. MEDICATION: None. PHYSICAL EXAMINATION: VITAL SIGNS: Blood pressure 130/78, respiratory rate 18-minutes, pulse rate 72-minutes, temperature 98.1. GENERAL: Comfortable, no acute distress. Appropriate mood and affect. HEART: Regular rhythm and rate, no murmur. LUNGS: Clear to auscultation bilateral. ABDOMEN: Soft and nontender. There is a dressing on the incision of recent cholecystectomy. FLANK: No CVA tenderness bilateral. EXTREMITIES: No edema, varicose veins, thigh or calf tenderness bilateral. IMPRESSION AND PLAN: A 41-year-old, 3, para 3-0-0-3, cholelithiasis status post cholecystectomy and abnormal uterine bleeding. She states bleeding currently decreasing. Evaluation and treatment option versus benefits and alternatives discussed in detail with patient. She expressed understanding. All of her questions answered. Ultrasound results discussed with patient. As her bleeding is decreasing at this time, I recommend follow up with her primary OB, Dr. Smalls. I contact Dr. Smalls and inform her that the patient is in the hospital. Dr. Smalls will visit her today. Dictated By: Nancy Yoo MD /cely/franki /Document#: [id number]
[2016-11-13 14:35] VITALS: BP 100/53; RESP 18
--- NOTE | 2016-11-13 16:34 | PN ---
Date/Time of Note Date/Time of Note DATE: 11/13/16 TIME: 16:34 Assessment/Plan VTE Prophylaxis VTE Prophylaxis Intervention: SCD's Lines/Catheters [facility] Type [facility] Peripheral IV Urinary Cath still in place: No Assessment/Plan Chief Complaint/Hosp Course s/p lap brenda tolerating diet and having bm Problems: Assessment/Plan dc home Subjective 24 Hr Interval Summary Free Text/Dictation doing well no issues tolareting diet Exam/Review of Systems Vital Signs Vitals Vital Signs Date Time Temp Pulse Resp B/P Pulse Ox O2 Delivery O2 Flow Rate FiO2 11/13/16 14:35 98.1 69 18 100/53 98 11/10/16 09:00 Nasal Cannula 2.0 Intake and Output 11/12/16 11/12/16 11/13/16 15:00 23:00 07:00 Intake Total 920 ml 1070 ml Balance 920 ml 1070 ml Exam c/d/i Results Result Diagram: 11/13/16 0514 11/13/16 0514 Results 24 hrs Laboratory Tests Test 11/12/16 19:48 11/13/16 05:14 White Blood Count 10.5 8.6 Red Blood Count 3.74 L 3.67 L Hemoglobin 8.7 L 8.7 L Hematocrit 29.6 L 29.2 L Mean Corpuscular Volume 79.1 L 79.6 L Mean Corpuscular Hemoglobin 23.3 L 23.7 L Mean Corpuscular Hemoglobin Concent 29.4 L 29.8 L Red Cell Distribution Width 15.0 H 15.0 H Platelet Count 262 286 Mean Platelet Volume 10.2 9.9 Neutrophils % 74.6 67.5 Lymphocytes % 15.3 20.7 Monocytes % 7.5 7.5 Eosinophils % 1.8 3.8 Basophils % 0.3 0.2 Nucleated Red Blood Cells % 0.2 H 0.2 H Neutrophils # (Manual) 7.9 H 5.8 Lymphocytes # 1.6 1.8 Monocytes # 0.8 0.7 Eosinophils # 0.2 0.3 Basophils # 0.0 0.0 Nucleated Red Blood Cells # 0.0 0.0 Sodium Level 137 Potassium Level 3.9 Chloride Level 101 Carbon Dioxide Level 32 H Anion Gap 8 Blood Urea Nitrogen 6 L Creatinine 0.71 Glucose Level 103 Calcium Level 8.7 Medications Medications Current Medications Potassium Chloride/Dextrose/ Sod Cl 1,000 ml @ 60 mls/hr [id number] IV Last administered on 11/13/16 12:35; Admin Dose 60 MLS/HR; Start 11/09/16 at 21:30 Acetaminophen (Ofirmev 1000mg/ 100ml Iv) 100 ml @ 400 mls/hr Q6H PRN IVPB PAIN ; Start 11/09/16 at 21:30 Oxycodone/ Acetaminophen (Percocet (5/ 325)) 1 tab Q4H PRN PO PAIN Last administered on 11/13/16 08:55; Admin Dose 1 TAB; Start 11/09/16 at 21:30 Hydromorphone HCl (Dilaudid) 1 mg Q4H PRN IV PAIN Last administered on 21:21; Admin Dose 1 MG; Start 11/09/16 at 21:30 Ondansetron HCl (Zofran Inj) 4 mg Q4H PRN IV NAUSEA AND/OR VOMITING Last administered on 11/12/16 08:18; Admin Dose 4 MG; Start 11/09/16 at 21:30 Famotidine (Pepcid Iv) 20 mg BID IV Last administered on 11/13/16 08:55; Admin Dose 20 MG; Start 11/10/16 at 09:00 Metoclopramide HCl (Reglan) 10 mg Q6 IV Last administered on 11/13/16 12:35; Admin Dose 10 MG; Start 11/10/16 at 00:00 Bisacodyl (Dulcolax Supp) 10 mg DAILY PRN [place] CONSTIPATION; Start 11/10/16 at 20: 00 Brisa DE SANTIAGO Nov 13, 2016 16:34
[2016-11-13 19:28] VITALS: BP 123/61; RESP 20
--- NOTE | 2016-11-13 20:26 | CONS ---
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 Reason for Consultation abnormal uterine bleeding 24 HR Interval Summary Free Text/Dictation 41 Y.O who has been having heavy period 2-3 days out of her usual period which last for one week and occasional intermenstral bleeding , she was scheduled for HSC and D&C on december 27 At present having light bleeding which Exam/Review of Systems Vital Signs Vitals Vital Signs Date Time Temp Pulse Resp B/P Pulse Ox O2 Delivery O2 Flow Rate FiO2 11/13/16 14:35 98.1 69 18 100/53 98 11/10/16 09:00 Nasal Cannula 2.0 Intake and Output 11/12/16 11/12/16 11/13/16 15:00 23:00 07:00 Intake Total 920 ml 1070 ml Balance 920 ml 1070 ml Results Result Diagram: 11/13/16 0514 11/13/16 0514 Results 24 hrs Laboratory Tests Test 11/13/16 05:14 White Blood Count 8.6 Red Blood Count 3.67 L Hemoglobin 8.7 L Hematocrit 29.2 L Mean Corpuscular Volume 79.6 L Mean Corpuscular Hemoglobin 23.7 L Mean Corpuscular Hemoglobin Concent 29.8 L Red Cell Distribution Width 15.0 H Platelet Count 286 Mean Platelet Volume 9.9 Neutrophils % 67.5 Lymphocytes % 20.7 Monocytes % 7.5 Eosinophils % 3.8 Basophils % 0.2 Nucleated Red Blood Cells % 0.2 H Neutrophils # (Manual) 5.8 Lymphocytes # 1.8 Monocytes # 0.7 Eosinophils # 0.3 Basophils # 0.0 Nucleated Red Blood Cells # 0.0 Sodium Level 137 Potassium Level 3.9 Chloride Level 101 Carbon Dioxide Level 32 H Anion Gap 8 Blood Urea Nitrogen 6 L Creatinine 0.71 Glucose Level 103 Calcium Level 8.7 Medications Medications Current Medications Potassium Chloride/Dextrose/ Sod Cl 1,000 ml @ 60 mls/hr [id number] IV Last administered on 11/13/16t 12:35; Admin Dose 60 MLS/HR; Start 11/09/16 at 21:30 Acetaminophen (Ofirmev 1000mg/ 100ml Iv) 100 ml @ 400 mls/hr Q6H PRN IVPB PAIN ; Start 11/09/16 at 21:30 Oxycodone/ Acetaminophen (Percocet (5/ 325)) 1 tab Q4H PRN PO PAIN Last administered on 11/13/16 17:43; Admin Dose 1 TAB; Start 11/09/16 at 21:30 Hydromorphone HCl (Dilaudid) 1 mg Q4H PRN IV PAIN Last administered on 21:21; Admin Dose 1 MG; Start 11/09/16 at 21:30 Ondansetron HCl (Zofran Inj) 4 mg Q4H PRN IV NAUSEA AND/OR VOMITING Last administered on 11/12/16 08:18; Admin Dose 4 MG; Start 11/09/16 at 21:30 Metoclopramide HCl (Reglan) 10 mg Q6 IV Last administered on 11/13/16 17:43; Admin Dose 10 MG; Start 11/10/16 at 00:00 Bisacodyl (Dulcolax Supp) 10 mg DAILY PRN [place] CONSTIPATION; Start 11/10/16 at 20: 00 Famotidine (Pepcid) 20 mg BID PO ; Start 11/13/16 at 21:00 LIZETT BULLARD MD Nov 13, 2016 20:26
[2016-11-13] MEDS: FAMOTIDINE 20 MG TAB PO SCH (21:13)
--- NOTE | 2016-11-13 21:32 | CONS ---
Date/Time of Note Date/Time of Note DATE: 11/13/16 TIME: 21:21 Consultation Date/Type/Reason Admit Date/Time Nov 09, 2016 at 21:47 Initial Consult Date nov 13 2016 Type of Consultation: obstetrician gynecologist Reason for Consultation abnormal uterine bleeding 24 HR Interval Summary Free Text/Dictation 41 y.o , was scheduled for HSC and D&C dec 27 2016 for menometrorrhagia here for cholecystectomy which is done 11/09/16 presented with intermenstral bleeding which started 2weeks age which is not heavy and at present ,only light spotting will expedite procedure much sooner than originally scheduled time as a out patient at the end of this month. patient was instruct to continue iron supplement and will do procedure end of this month ,which time is at least 2weeks from cholecystectomy Exam/Review of Systems Vital Signs Vitals Vital Signs Date Time Temp Pulse Resp B/P Pulse Ox O2 Delivery O2 Flow Rate FiO2 11/13/16 14:35 98.1 69 18 100/53 98 11/10/16 09:00 Nasal Cannula 2.0 Intake and Output 11/12/16 11/12/16 11/13/16 15:00 23:00 07:00 Intake Total 920 ml 1070 ml Balance 920 ml 1070 ml Results Result Diagram: 11/13/16 0514 11/13/16 0514 Results 24 hrs Laboratory Tests Test 11/13/16 05:14 White Blood Count 8.6 Red Blood Count 3.67 L Hemoglobin 8.7 L Hematocrit 29.2 L Mean Corpuscular Volume 79.6 L Mean Corpuscular Hemoglobin 23.7 L Mean Corpuscular Hemoglobin Concent 29.8 L Red Cell Distribution Width 15.0 H Platelet Count 286 Mean Platelet Volume 9.9 Neutrophils % 67.5 Lymphocytes % 20.7 Monocytes % 7.5 Eosinophils % 3.8 Basophils % 0.2 Nucleated Red Blood Cells % 0.2 H Neutrophils # (Manual) 5.8 Lymphocytes # 1.8 Monocytes # 0.7 Eosinophils # 0.3 Basophils # 0.0 Nucleated Red Blood Cells # 0.0 Sodium Level 137 Potassium Level 3.9 Chloride Level 101 Carbon Dioxide Level 32 H Anion Gap 8 Blood Urea Nitrogen 6 L Creatinine 0.71 Glucose Level 103 Calcium Level 8.7 Medications Medications Current Medications Potassium Chloride/Dextrose/ Sod Cl 1,000 ml @ 60 mls/hr [id number] IV Last administered on 11/13/16 12:35; Admin Dose 60 MLS/HR; Start 11/09/16 at 21:30 Acetaminophen (Ofirmev 1000mg/ 100ml Iv) 100 ml @ 400 mls/hr Q6H PRN IVPB PAIN ; Start 11/09/16 at 21:30 Oxycodone/ Acetaminophen (Percocet (5/ 325)) 1 tab Q4H PRN PO PAIN Last administered on 11/13/16 17:43; Admin Dose 1 TAB; Start 11/09/16 at 21:30 Hydromorphone HCl (Dilaudid) 1 mg Q4H PRN IV PAIN Last administered on 21:21; Admin Dose 1 MG; Start 11/09/16 at 21:30 Ondansetron HCl (Zofran Inj) 4 mg Q4H PRN IV NAUSEA AND/OR VOMITING Last administered on 11/12/16 08:18; Admin Dose 4 MG; Start 11/09/16 at 21:30 Metoclopramide HCl (Reglan) 10 mg Q6 IV Last administered on 11/13/16 17:43; Admin Dose 10 MG; Start 11/10/16 at 00:00 Bisacodyl (Dulcolax Supp) 10 mg DAILY PRN [place] CONSTIPATION; Start 11/10/16 at 20: 00 Famotidine (Pepcid) 20 mg BID PO Last administered on 11/13/16 21:13; Admin Dose 20 MG; Start 11/13/16 at 21:00 LIZETT BULLARD MD Nov 13, 2016 21:32
[2016-11-14 02:30] VITALS: BP 109/58; RESP 18
[2016-11-14 05:33] LABS: BASOPHILS % 0.5 % (0.0-2.0); EOSINOPHILS # 0.5 10^3/ul (0.0-0.5); EOSINOPHILS % 5.7 % (0.0-7.0); HEMATOCRIT 32.5 % (37.0-47.0); HEMOGLOBIN 9.7 g/dl (12.0-16.0); LYMPHOCYTES # 2.1 10^3/ul (0.8-2.9); LYMPHOCYTES % 24.6 % (15.0-51.0); MEAN CORPUSCULAR HEMOGLOBIN 23.5 pg (29.0-33.0); MEAN CORPUSCULAR HGB CONC 29.8 g/dl (32.0-37.0); MEAN CORPUSCULAR VOLUME 78.9 fl (82.0-101.0); MEAN PLATELET VOLUME 9.4 fl (7.4-10.4); MONOCYTE # 0.6 10^3/ul (0.3-0.9); MONOCYTES % 7.1 % (0.0-11.0); NEUTROPHILS % 61.6 % (39.0-77.0); NUCLEATED RED BLOOD CELLS% 0.2 /100WBC (0.0-0.0); PLATELET COUNT 347 10^3/UL (140-415); RED BLOOD COUNT 4.12 10^6/ul (4.20-5.40); RED CELL DISTRIBUTION WIDTH 15.3 % (11.5-14.5); WHITE BLOOD COUNT 8.7 10^3/ul (4.8-10.8)
[2016-11-14] MEDS: METOCLOPRAMIDE 10 MG INJ IV SCH ×2 (05:40→12:09)
[2016-11-14] MEDS: D5W-0.45 NACL + KCL 20 MEQ 1,000 ML IV SCH (05:42)
[2016-11-14] MEDS: OXYCODONE/ACETAMINOPHEN (5/325) TAB PO PRN ×2 (05:42→09:39)
[2016-11-14 05:48] LABS: IRON 23 ug/dl (35-150)
[2016-11-14 05:50] LABS: CALCIUM 9.3 mg/dl (8.4-10.2); CREATININE 0.8 mg/dl (0.44-1.00); POTASSIUM 4.4 mmol/L (3.5-5.1)
[2016-11-14 05:57] LABS: TOTAL IRON BINDING CAPACITY 436 ug/dl (241-421)
[2016-11-14 07:56] VITALS: BP 98/43; RESP 18
[2016-11-14] MEDS: FAMOTIDINE 20 MG TAB PO SCH (08:54)
--- NOTE | 2016-11-14 12:36 | PDOCDIS ---
Discharge Instructions CONDITION Patient Condition: Stable HOME CARE INSTRUCTIONS: Special Diet: soft diet ACTIVITY: Activity Restrictions: Slowly Increase Activity Rest between Activity Avoid heavy lifting No Sexual Activity Do not operate Machinery Do not operate Power Tool Avoid Heavy Housework FOLLOW UP/APPOINTMENTS Follow-up Plan FU with primary MD x 1 week- Dr. Declan Cordova Fu with traveling storekeeper as recommended. - Patient stated she colton Smalls and will fu x1 week. Call 911 or go to the the nearest hospital is symptoms got worse.Patient verbalized understanding dc instructions. Colton Noel/staff HEATHER WOODS Nov 14, 2016 12:36
[2016-11-14] MEDS ORDERED: DOCU-144 PO (12:38)
[2016-11-14] MEDS ORDERED: FAMO20TA18 PO (12:38)
[2016-11-14] MEDS ORDERED: Oxycodone/Acetamin (5/325) PO (12:38)
--- NOTE | 2016-11-14 12:39 | DS ---
Date/Time of Note Date/Time of Note DATE: 11/14/16 TIME: 12:39 Discharge Summary Admission/Discharge Info Admit Date/Time Nov 09, 2016 at 21:47 Discharge Date/Time Hospital Course s/p lap brenda tolerating diet and having bm Home Meds No Active Prescriptions or Reported Meds Follow-up Plan FU with primary MD x 1 week- Dr. Declan Cordova Fu with dramatic agent as recommended. - Patient stated she dw dr Anay Smalls and will fu x1 week. Call 911 or go to the the nearest hospital is symptoms got worse.Patient verbalized understanding dc instructions. Dw Dr Noel/staff Primary Care Provider Declan Cordova Pending Labs Laboratory Tests Test 11/14/16 05:04 White Blood Count 8.710^3/ul (4.8-10.8) Red Blood Count 4.1210^6/ul (4.20-5.40) Hemoglobin 9.7g/dl (12.0-16.0) Hematocrit 32.5% (37.0-47.0) Mean Corpuscular Volume 78.9fl (82.0-101.0) Mean Corpuscular Hemoglobin 23.5pg (29.0-33.0) Mean Corpuscular Hemoglobin Concent 29.8g/dl (32.0-37.0) Red Cell Distribution Width 15.3% (11.5-14.5) Platelet Count 04098^3/UL (140-415) Mean Platelet Volume 9.4fl (7.4-10.4) Neutrophils % 61.6% (39.0-77.0) Lymphocytes % 24.6% (15.0-51.0) Monocytes % 7.1% (0.0-11.0) Eosinophils % 5.7% (0.0-7.0) Basophils % 0.5% (0.0-2.0) Nucleated Red Blood Cells % 0.2/100WBC (0.0-0.0) Neutrophils # (Manual) 5.310^3/ul (1.7-7.5) Lymphocytes # 2.110^3/ul (0.8-2.9) Monocytes # 0.610^3/ul (0.3-0.9) Eosinophils # 0.510^3/ul (0.0-0.5) Basophils # 0.010^3/ul (0.0-0.1) Nucleated Red Blood Cells # 0.010^3/ul (0.0-0.0) Sodium Level 139mmol/L (135-144) Potassium Level 4.4mmol/L (3.5-5.1) Chloride Level 100mmol/L (97-110) Carbon Dioxide Level 32mmol/L (21-31) Anion Gap 11 (8-16) Blood Urea Nitrogen 9mg/dl (7-20) Creatinine 0.80mg/dl (0.44-1.00) Glucose Level 98mg/dl (70-220) Calcium Level 9.3mg/dl (8.4-10.2) Iron Level 23ug/dl (35-150) Total Iron Binding Capacity 436ug/dl (241-421) Percent Iron Saturation 5% SAT (22-52) Ferritin 8.0ng/ml (6.2-137.0) HEATHER WOODS Nov 14, 2016 12:39
[2016-11-14 14:31] VITALS: BP 126/75; RESP 16
== END 2016-11-14 15:47 | disposition home or self-care (01) | DRG 418 ==
LOC: SDS 12:18 → PP2 21:47
PROVIDERS: ADMIT Internal Medicine; ATTEND Internal Medicine
PROC: 0FT44ZZ Resection of Gallbladder, Percutaneous Endoscopic Approach (ICD-10-PCS; principal; 2016-11-09 14:30)
PROC: 30233N1 Transfusion of Nonautologous Red Blood Cells into Peripheral Vein, Percutaneous Approach (ICD-10-PCS; 2016-11-11)
DX: K80.10 Calculus of gallbladder with chronic cholecystitis without obstruction (principal); Z68.41 Body mass index [BMI] 40.0-44.9, adult; E66.01 Morbid (severe) obesity due to excess calories; D64.9 Anemia, unspecified; N93.9 Abnormal uterine and vaginal bleeding, unspecified; D25.9 Leiomyoma of uterus, unspecified
CPT/HCPCS: 36430; 76830; 76856; 80048; 80053; 82728; 83540; 85025; 86850; 86900; 86901; 86920; 88304; J0690; J1100; J1170; J1885; J2175; J2250; J2405; J2710; J2765; J3010; J3480; J7999; P9016

== ENCOUNTER 2016-12-27 06:41 | Day surgery (SDC) | payer OTHER ==
[~2016-12-27] VITALS: Ht 348 cm; Wt 144.0 kg
[2016-12-27] VITALS (13 sets, daily range): BP systolic 91–118; BP diastolic 48–59; PULSE 66–76; RESP 17–20; Ht 348 cm; Wt 144.0 kg
[~2016-12-27 06:41] MED LIST changes: -CEFAZOLIN 2 GM/50 ML (PMX) 50 ML IVPB SCH; +DOCU-144 PO; -EPHEDrine SULFATE 50 MG/5 ML SYG ONE; +FAMO20TA18 PO; +Oxycodone/Acetamin (5/325) PO
[2016-12-27] MEDS ORDERED: FENTAnyl 50 MCG/ML VIAL IV PRN ×2 (07:00)
[2016-12-27] MEDS ORDERED: HYDROmorphONE (0.2 MG/ML) 10ML SYG IV PRN ×3 (07:00)
[2016-12-27] MEDS ORDERED: morphine (1 MG/ML) 10ML SYRINGE IV PRN ×3 (07:00)
[2016-12-27] MEDS ORDERED: LABETALOL HCL 20MG INJ IV PRN (07:00)
[2016-12-27] MEDS ORDERED: ONDANSETRON 4 MG INJ IV PRN (07:00)
[2016-12-27] MEDS ORDERED: ATROPINE 1 MG/10 ML SYRINGE IV PRN (07:00)
[2016-12-27] MEDS ORDERED: hydrALAzine 20 MG INJ IV PRN (07:00)
[2016-12-27] MEDS ORDERED: MIDAZOLAM 1 MG/ML 2 ML INJ IV PRN (07:00)
[2016-12-27] MEDS ORDERED: EPHEDrine SULFATE 50 MG/5 ML SYG IV PRN (07:00)
[2016-12-27] MEDS ORDERED: MEPERIDINE 25 MG INJ IV PRN (07:00)
[2016-12-27] MEDS ORDERED: DIPHENHYDRAMINE 50 MG INJ IV PRN (07:00)
[2016-12-27] MEDS ORDERED: LACTATED RINGER'S 1,000 ML IV* SCH (07:00)
[2016-12-27] MEDS ORDERED: OXYCODONE/ACETAMINOPHEN (5/325) TAB PO PRN ×2 (07:00)
[2016-12-27] MEDS ORDERED: FER325 PO (07:32)
[2016-12-27] MEDS ORDERED: PHEN37.53 PO (07:33)
--- NOTE | 2016-12-27 07:56 | HPN ---
Date/Time of Note Date/Time of Note DATE: 12/27/16 TIME: 07:56 Interval H&P Admission Note Pt. seen H&P reviewed: No system changes LIZETT BULLARD MD Dec 27, 2016 07:56
[2016-12-27] MEDS ORDERED: NEOSTIGMINE 3 MG/3 ML SYRINGE ONE (08:38)
[2016-12-27] MEDS ORDERED: PROPOFOL 20 ML ONE (08:38)
[2016-12-27] MEDS ORDERED: FENTAnyl 50 MCG/ML VIAL ONE (08:38)
[2016-12-27] MEDS ORDERED: GLYCOPYRROLATE 0.4 MG INJ ONE (08:38)
[2016-12-27] MEDS ORDERED: MIDAZOLAM 1 MG/ML 2 ML INJ ONE (08:38)
[2016-12-27] MEDS ORDERED: ROCURONIUM 50 MG INJ ONE (08:38)
[2016-12-27] MEDS ORDERED: LIDOCAINE 2% (SDV) 5 ML INJ ONE (08:38)
[2016-12-27] MEDS ORDERED: SUCCINYLCHOLINE CHLORIDE 100 MG/5 ML SYG IV ONE (08:59)
[2016-12-27] MEDS ORDERED: DEXAMETHASONE 4 MG/ML 1 ML INJ ONE (09:03)
[2016-12-27] MEDS ORDERED: ONDANSETRON 4 MG INJ ONE (09:04)
--- NOTE | 2016-12-27 10:34 | SIPON ---
Date/Time of Note Date/Time of Note DATE: 12/27/16 TIME: 10:31 Operative Report Preoperative Diagnosis abnormal uterine bleeding Postoperative Diagnosis see pathologic report Operation/Procedure Performed Hysteroscopy ECC EMC Surgeon see signature line integration assistant namrata from ( true clear) Anesthesia: general Estimated blood loss: 0 - 10 ml's Transfusion Required none Specimen ECC EMC Grafts/Implants none Complications none LIZETT BULLARD MD Dec 27, 2016 10:34
--- NOTE | 2016-12-27 10:34 | SIPON ---
Date/Time of Note Date/Time of Note DATE: 12/27/16 TIME: 10:31 Operative Report Preoperative Diagnosis abnormal uterine bleeding Postoperative Diagnosis see pathologic report Operation/Procedure Performed Hysteroscopy ECC EMC Surgeon see signature line bilingual sales assistant namrata from ( true clear) Anesthesia: general Estimated blood loss: 0 - 10 ml's Transfusion Required none Specimen ECC EMC Grafts/Implants none Complications none LIZETT BULLARD MD Dec 27, 2016 10:34
--- NOTE | 2016-12-27 10:34 | SIPON ---
Date/Time of Note Date/Time of Note DATE: 12/27/16 TIME: 10:31 Operative Report Preoperative Diagnosis abnormal uterine bleeding Postoperative Diagnosis see pathologic report Operation/Procedure Performed Hysteroscopy ECC EMC Surgeon see signature line project construction assistant manager namrata from ( true clear) Anesthesia: general Estimated blood loss: 0 - 10 ml's Transfusion Required none Specimen ECC EMC Grafts/Implants none Complications none LIZETT BULLARD MD Dec 27, 2016 10:34
--- NOTE | 2016-12-27 10:35 | PD.PPDC ---
FELLED SEAM OPERATOR Discharge Instruction Diagnosis Final Diagnosis: abnormal uterine bleeding Condition Patient Condition: Stable Diet Diet: Resume Regular Diet Activity/Restrictions Activity: May Shower Restrictions: No Sexual Activity Nothing in the Vagina No [place] No Tampons, douche Follow-up Follow-up with Physician: 2, Week/Weeks Return to clinic for WEED INSPECTOR Instructions: Fever greater than 101 Chills Worsening abdominal pain Excessive Vaginal Bleeding More than 2 pads per hour Unable to tolerate diet LIZETT BULLARD MD Dec 27, 2016 10:35
--- NOTE | 2016-12-27 10:35 | PD.PPDC ---
DUMBWAITER OPERATOR Discharge Instruction Diagnosis Final Diagnosis: abnormal uterine bleeding Condition Patient Condition: Stable Diet Diet: Resume Regular Diet Activity/Restrictions Activity: May Shower Restrictions: No Sexual Activity Nothing in the Vagina No [place] No Tampons, douche Follow-up Follow-up with Physician: 2, Week/Weeks Return to clinic for HEAD OF SALES AND MARKETING Instructions: Fever greater than 101 Chills Worsening abdominal pain Excessive Vaginal Bleeding More than 2 pads per hour Unable to tolerate diet LIZETT BULLARD MD Dec 27, 2016 10:35
--- NOTE | 2016-12-27 10:35 | PD.PPDC ---
HOSPICE HOME CARE COORDINATOR Discharge Instruction Diagnosis Final Diagnosis: abnormal uterine bleeding Condition Patient Condition: Stable Diet Diet: Resume Regular Diet Activity/Restrictions Activity: May Shower Restrictions: No Sexual Activity Nothing in the Vagina No [place] No Tampons, douche Follow-up Follow-up with Physician: 2, Week/Weeks Return to clinic for TECHNICAL DESIGNER Instructions: Fever greater than 101 Chills Worsening abdominal pain Excessive Vaginal Bleeding More than 2 pads per hour Unable to tolerate diet LIZETT BULLARD MD Dec 27, 2016 10:35
--- NOTE | 2016-12-28 11:58 | OPR ---
DATE OF OPERATION: 12/27/2016 PREOPERATIVE DIAGNOSIS: Abnormal uterine bleeding, uterine fibroid. POSTOPERATIVE DIAGNOSIS: See pathological report. OPERATION PERFORMED: Hysteroscopy, dilation and curettage. ANESTHESIA: General. ANESTHESIOLOGIST: Dr. Gimenez. BURGLAR ALARM INSPECTOR: . ESTIMATED BLOOD LOSS: Less than 10 mL. PROCEDURE: Under the proper induction of general anesthesia, the patient was placed in the dorsal l ithotomy position. Perineal area and vagina wall was prepped and draped in usual aseptic manner. O n inspection, external genitalia revealed no gross abnormality. Bimanual examination, uterus felt t o be approximately 9 to 10 weeks of gestational size, form and consistency. There was no palpable a dnexal pathology. Weighted speculum was introduced. There is a first degree of uterine prolapse no yehuda. The cervix is hypertrophic and parous appearing and clear. Anterior lip of the cervix was gra sped and endocervical curettage was performed and the tissue was sent to pathology separately which is . The cavity was sounded, which was a 9.5 cm, and the os did not have to be dilated because it was so patent and expected that the media will be escaping from the uterine cavity without retai quiana. At this point, it was decided to put a suture on each corner of the cervix to reduce the cerv ical os in order to retain the fluid in utero during the procedure. So 0 chromic catgut was placed on each side and size 6 hysteroscope was introduced after the usual preparation and still unable to retain the saline in utero. At this point, we decided to use the size 9 hysteroscope. So we prepar ed for the size 9 hysteroscope, which was introduced and still had some leaking, so additional tenac ulum was applied in the corner on top of both sides of suturing and this held the fluid in utero and able to see inside the cavity including both ostia. The resector was introduced and the entire cav ity was shaved and the tissue was obtained in the retriever, which was sent to pathology. Fluid def icit is 110 mL. All the instruments were removed after taking the picture prior to procedure at the procedure. No bleeder noted. The patient was sent to the recovery room in stable condition. All the sponge count, instrument count was correct. Dictated By: JONEL BALES/LADI Conf#: [id number] [facility]#: [id number]
== END 2016-12-27 12:55 | disposition home or self-care (01) ==
LOC: SDS 06:41
PROVIDERS: ATTEND Obstetrics & Gynecology
DX: N93.9 Abnormal uterine and vaginal bleeding, unspecified (principal)
CPT/HCPCS: 58558; 84703; 88305; J1100; J2250; J2405; J3010; Z7512; Z7610; J2710

== ENCOUNTER 2018-10-01 05:33 | Day surgery (SDC) | payer OTHER ==
[~2018-10-01] VITALS: Ht 180.3 cm; Wt 154.2 kg
[2018-10-01] VITALS (17 sets, daily range): BP systolic 108–132; BP diastolic 58–74; PULSE 60–75; RESP 14–20; Ht 180.3 cm; Wt 154.2 kg
[~2018-10-01 05:33] MED LIST changes: +ALBU18HF INHALATION; +CHOL100062 PO; -FAMO20TA18 PO; +FER325 PO; +GEMF600T PO; +HYDR12.58 PO; -Oxycodone/Acetamin (5/325) PO; +PHEN37.53 PO; +SULF1TAB31 PO; +WORK NOTE
[2018-10-01] MEDS ORDERED: LACTATED RINGER'S 1,000 ML IV ONE (06:00)
--- NOTE | 2018-10-01 07:25 | PREAC ---
Date/Time of Note Date/Time of Note DATE: 10/01/18 TIME: 07:23 Anesthesia Eval and Record Evaluation Time Pre-Procedure Interview DATE: 10/01/18 TIME: 07:23 Age 43 Sex female NPO: 8 hrs Preoperative diagnosis Uterine Fibroid Planned procedure Hysteroscopy and Myomectomy Past Medical History Past Medical History: Includes Cardio: HTN Endo: Hypothyroid Pulm: Asthma GI: Morbid obesity Heme: Anemia Surgery & Anesthesia Issues No known issue Meds Anticoagulation: No Beta Maty within 24 hr: No Reason Beta Maty not given: Pt. not on B-Maty Reported Medications Cholecalciferol* (Vitamin D3*) 1,000 Unit Tablet, 1000 UNIT PO DAILY, TAB 10/01/18 Gemfibrozil* (Lopid*) 600 Mg Tablet, 600 MG PO BID, TAB 10/01/18 Hydrochlorothiazide* (Hydrochlorothiazide*) 12.5 Mg Tablet, 12.5 MG PO DAILY, #30 TAB 10/01/18 Albuterol Sulfate* (Ventolin HFA*) 18 Gm Hfa.aer.ad, 2 PUFF INHALATION Q4H, #1 INHALER 10/01/18 Phentermine Hcl (Phentermine Hcl) 37.5 Mg Tablet, 37.5 MG PO DAILY, TAB 12/27/16 Ferrous Sulfate* (Ferrous Sulfate*) 325 Mg Tabec, 325 MG PO DAILY, TAB 12/27/16 Current Medications Lactated Ringer's 1,000 ml @ 125 mls/hr Q8H ONCE IV ; Start 10/01/18 at 06:00; Stop 10/01/18 at 13:59 Meds reviewed: Yes Allergies Coded Allergies: No Known Allergy (Unverified , 12/27/16) Allergies Reviewed: Yes Labs/Studies Labs Reviewed: Reviewed by anesthesiologist test: Negative Studies: ECG (n/a), CXR (n/a) Pre-procedure Exam Last vitals Vital Signs Date Temp Pulse Resp B/P (MAP) Pulse Ox O2 O2 Flow FiO2 Time Delivery Rate 10/01/18 97.9 71 20 109/61 98 Room Air 06:31 (77) Airway: Adequate mouth opening, Adequate thyromental dist Mallampati: Mallampati II Teeth: Normal Lung: Normal Heart: Normal ASA Physical Status ASA physical status: 2 Emergency: None Planned Anesthetic General/MAC: ETT Planned Pain Management Parenteral pain med Pre-operative Attestations Prior to commencing anesthesia and surgery, the patient was re-evaluated, there was verification of: *The patient's identity *The results of appropriate recent lab work and preoperative vital signs *The above evaluation not changing prior to induction *Anesthetic plan, risk benefits, alternative and complications discussed with patient/family; questions answered; patient/family understands, accepts and wishes to proceed. ELIDIA GARCIA MD Oct 01, 2018 07:25
[2018-10-01] MEDS ORDERED: EPHEDrine 25 MG/5 ML SYG IV PRN (07:30)
[2018-10-01] MEDS ORDERED: hydrALAzine 20 MG INJ IV PRN (07:30)
[2018-10-01] MEDS ORDERED: LABETALOL HCL 20MG INJ IV PRN (07:30)
[2018-10-01] MEDS ORDERED: METOCLOPRAMIDE 10 MG INJ IV PRN (07:30)
[2018-10-01] MEDS ORDERED: HYDROmorphONE 1 MG/5 ML IV SYRINGE IV PRN ×3 (07:30)
[2018-10-01] MEDS ORDERED: OXYCODONE/ACETAMINOPHEN (5/325) TAB PO PRN (07:30)
[2018-10-01] MEDS ORDERED: ONDANSETRON 4 MG INJ IV PRN (07:30)
[2018-10-01] MEDS ORDERED: FENTAnyl 50 MCG/ML VIAL IV PRN ×3 (07:30)
--- NOTE | 2018-10-01 07:39 | HPN ---
Date/Time of Note Date/Time of Note DATE: 10/01/18 TIME: 07:38 Interval H&P Admission Note Pt. seen H&P reviewed: No system changes LIZETT BULLARD MD Oct 01, 2018 07:39
[2018-10-01] MEDS ORDERED: PROPOFOL 40 ML ONE (08:00)
[2018-10-01] MEDS ORDERED: CEFAZOLIN 1 GM INJ ONE (08:00)
[2018-10-01] MEDS ORDERED: SUCCINYLCHOLINE CHLORIDE 100 MG/5 ML SYG IV ONE (08:00)
[2018-10-01] MEDS ORDERED: ROCURONIUM 50 MG INJ ONE (08:00)
[2018-10-01] MEDS ORDERED: FENTAnyl 50 MCG/ML VIAL ONE (08:01)
[2018-10-01] MEDS ORDERED: MIDAZOLAM 1 MG/ML 2 ML INJ ONE (08:01)
[2018-10-01] MEDS ORDERED: METOCLOPRAMIDE 10 MG INJ ONE (08:41)
[2018-10-01] MEDS ORDERED: ONDANSETRON 4 MG INJ ONE (08:41)
[2018-10-01] MEDS ORDERED: KETOROLAC 30 MG INJ ONE (08:42)
[2018-10-01] MEDS ORDERED: DEXAMETHASONE 4 MG/ML 5 ML INJ ONE (08:42)
[2018-10-01] MEDS ORDERED: SUGAMMADEX SODIUM 200 MG/2 ML VIAL IV ONE (09:12)
--- NOTE | 2018-10-01 09:35 | SIPON ---
Date/Time of Note Date/Time of Note DATE: 10/01/18 TIME: 09:31 Operative Report Preoperative Diagnosis menometrorrhagia submucous uterine fibroid Postoperative Diagnosis see pathologic report uterine adhesion no visible submucous fibroid Operation/Procedure Performed hysteroscopic uterine shaving Surgeon see signature line supply assistant bushra Jackson Second assist: A Anesthesia: general Estimated blood loss: 0 - 10 ml's Transfusion Required none Specimen endometrial shaving Grafts/Implants none Complications none LIZETT BULLARD MD Oct 01, 2018 09:35
--- NOTE | 2018-10-01 09:44 | PAC ---
Date/Time of Note Date/Time of Note DATE: 10/01/18 TIME: 09:43 Post-Anesthesia Notes Post-Anesthesia Note Last documented vital signs Vital Signs Date Temp Pulse Resp B/P (MAP) Pulse Ox O2 O2 Flow FiO2 Time Delivery Rate 10/01/18 97.9 71 20 109/61 98 Room Air 09:31 (77) Activity: WNL Respiratory function: WNL Cardiovascular function: WNL Mental status: Baseline Pain reasonably controlled: Yes Hydration appropriate: Yes Nausea/Vomiting absent: Yes ELIDIA GARCIA MD Oct 01, 2018 09:43
--- NOTE | 2018-10-01 09:48 | PD.PPDC ---
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
[2018-10-01] MEDS ORDERED: ALBUTEROL/IPRATROPIUM (NEB) 3 ML AMP ONE (10:44)
[2018-10-01] MEDS ORDERED: IPRATROPIUM (NEB) 0.5 MG/2.5 ML AMP HHN PRN (11:00)
--- NOTE | 2018-10-01 13:12 | OPR ---
DATE OF OPERATION: 10/01/2018 PREOPERATIVE DIAGNOSES: Menometrorrhagia and submucous uterine fibroid. POSTOPERATIVE DIAGNOSIS: See pathological report and no visual submucous uterine fibroid. OPERATION PERFORMED: Hysteroscopic endometrial shaving. ANESTHESIA: General. ANESTHESIOLOGIST: Dr. Leggett ESTIMATED BLOOD LOSS: Less than 10 mL. SURGEON: Radha Smalls MD COMPLICATIONS: None. CUSTOMER SOLUTIONS SUPERVISOR: [place], Manuel, and the contract technical writer, Ray. PROCEDURE: Under the proper induction of general anesthesia, the patient was placed in dorsal lithot elisa position. Perineal area and vagina wall was prepped and draped in usual aseptic manner. Inspect ion of external genitalia revealed no gross abnormality except to relax the posterior fossa. A weigh yehuda speculum was introduced and the cervix identified which was parous appearing, shows moderate ectr opion. Anterior lip of the cervix was grasped with single tooth tenaculum. Cavity was sounded caref ully at 10 cm in depth and retroverted and retroflexed. After the cervix dilated up to 7, hysteroscope which was connected with normal saline, after proper p reparation done, was inserted and endocervical canal was entered, and I advanced it to the point. T he fundus was visualized, but it was difficult to visualize on both ostium due to the adhesion which is even shows a bridge in the mid cavity. After the proper expansion of the uterus, shaver was intro duced. Entire uterine cavity was shaved in all directions with ____. After taking pictures which re vealed the possibility of hyperplasia but it is somewhat different from the usual endometrial hyperpl elin, and it is more likely irregular surface and multiple ____ noted. There was one bridge in the m id cavity and the blood clot was lying in between the bridge. No visible submucous fibroid noted. Multiple pictures were taken after the procedure completed and picture was taken again. The procedure was completed. The hysteroscope was removed. The tenaculum was removed. At the tenac ulum site, there was some bleeding that was not controlled with pressure, so using 0 chromic catgut s imple suture was placed for the hemostasis. Fluid deficit was 240 mL. The patient withstood procedu re well and was sent to the recovery room in stable condition. Dictated By: RADHA BALES/LADI Conf#: [id number] [facility]#: [id number]
== END 2018-10-01 13:07 | disposition home or self-care (01) ==
LOC: SDS 05:33
PROVIDERS: ATTEND Obstetrics & Gynecology
DX: N92.1 Excessive and frequent menstruation with irregular cycle (principal); D25.9 Leiomyoma of uterus, unspecified; E11.9 Type 2 diabetes mellitus without complications; I10 Essential (primary) hypertension
CPT/HCPCS: 58558; 84703; 88305; 94664; J0690; J1100; J1885; J2250; J2405; J2765; J3010; Z7512; Z7610